=== PATIENT | male | born 1995 | race Caucasian/White ===

== ENCOUNTER 2022-02-23 23:00 | Emergency (ER) | payer BC, OTHER ==
[2022-02-24] MEDS ORDERED: Albuterol 6.7 GM Inhaler INH ONE (00:28)
== END 2022-02-24 01:40 | disposition home or self-care (01) ==
LOC: JD.ED 23:00
DX: J40 Bronchitis, not specified as acute or chronic (principal); Z87.891 Personal history of nicotine dependence
CPT/HCPCS: 71046; 94640; 99283; A9270